=== PATIENT | female | born 1935 | race Caucasian/White ===

== ENCOUNTER 2021-03-13 09:51 | Outpatient (CLI) | payer MEDICARE, BC ==
[2021-03-13 11:12] LABS: Estimated GFR-MDRD - POC Greater than 90
== END 2021-03-13 09:52 | disposition home or self-care (01) ==
LOC: CSHCT 09:51
PROVIDERS: ATTEND Family Medicine
DX: M54.2 Cervicalgia (principal); G89.29 Other chronic pain; E04.1 Nontoxic single thyroid nodule
CPT/HCPCS: 70491; 82565

== ENCOUNTER 2022-08-07 08:50 | Outpatient (CLI) | payer MEDICARE, BC | END 2022-08-07 08:51 | disposition home or self-care (01) | LOC: CSHMAMMO 08:50 | PROVIDERS: ATTEND Family Medicine | DX: Z12.31 Encounter for screening mammogram for malignant neoplasm of breast (principal); Z80.3 Family history of malignant neoplasm of breast; Z85.51 Personal history of malignant neoplasm of bladder | CPT/HCPCS: 77063; 77067 ==

== ENCOUNTER 2023-10-28 11:45 | Outpatient (CLI) | payer BC, MEDICARE | END 2023-10-28 11:46 | disposition home or self-care (01) | LOC: CSHMAMMO 11:45 | PROVIDERS: ATTEND Family Medicine | DX: Z12.31 Encounter for screening mammogram for malignant neoplasm of breast (principal); Z80.3 Family history of malignant neoplasm of breast; Z85.51 Personal history of malignant neoplasm of bladder | CPT/HCPCS: 77063; 77067 ==